=== PATIENT | male | born 1980 | race African-American/Black ===

== ENCOUNTER 2017-04-24 19:13 | Emergency (ER) | payer OTHER ==
--- NOTE | 2017-04-24 20:21 | CT ---
CT OF THE CERVICAL SPINE 04/24/[address] of the cervical spine was done following trauma. Axial slices were acquired, then coronal a nd sagittal reconstructions were done. No fracture or dislocation was seen at any cervical level. There is loss of the normal cervical lordo sis which may be due to muscle spasm. There is a focal central bulge of the C4-C5 disc. Additionally, there is a diffuse disc bulge/osteoph yte complex at C5-C6 with a large right paracentral posterior osteophyte projecting into the spinal c anal and potentially effacing the cord. No foraminal stenosis was seen at any level. The soft tissues are normal in thickness. The C1 to dens distance is normal. There is a mild diffuse increase in deep cervical adenopathy bilaterally, but the findings are symmetrical and this is generally a very nonsp ecific finding. IMPRESSION: 1. Straightening of the cervical spine but no fractures seen. Muscle spasm presumed. 2. Focal central disc protrusion at C4-C5, age indeterminate. 3. Diffuse disc bulge at C5-C6, a little more right sided than left, plus a large posterior oste ophyte projecting into the spinal canal at this level. The latter probably effaces the cord. POS: HOME
[2017-04-24] MEDS ORDERED: Ketorolac Tromethamine 30 MG/ML VIAL ONE (20:24)
[2017-04-24 20:39] LABS: Bilirubin Negative (Negative); Blood, Urine Trace (Negative); Clarity Clear (Clear); Glucose, Urine (Dipstick) Negative (Negative); Leukocyte Negative (Negative); Nitrite Negative (Negative); Protein, Urine (Dipstick) Negative (Neg-Trace); Specific Gravity, Urine 1.015 (1.005-1.030)
[2017-04-24 20:45] LABS: RBC/HPF 0-3 HPF (0-3); Squamous Epithelial 0-3 HPF (0-3); WBC/HPF None Seen HPF (0-3)
--- NOTE | 2017-04-24 21:04 | CT ---
CT OF THE THORACIC SPINE 04/24/[address] of the thoracic spine was done following trauma. Axial slices were acquired, then coronal a nd sagittal reconstructions were done. No fracture, dislocation, or disc space narrowing was seen at any thoracic level. Vertebral alignment was normal. The paravertebral soft tissues appeared normal. There was no sign of central canal or fo raminal stenosis at any level. No disc herniations were seen, though small ones would be missed on th is study. Dependent atelectasis is seen in the lungs. Much of the patient's mediastinum was visible on these im ages and no traumatic changes were seen in the areas covered. IMPRESSION: No acute traumatic finding. POS: HOME
--- NOTE | 2017-04-24 21:13 | CT ---
CT ABDOMEN AND PELVIS WITH CONTRAST 04/24/[address] of the abdomen and pelvis was done following trauma. Axial slices were acquired after a power stephanie of IV contrast. Coronal and sagittal reconstructions were later done. The lung bases are clear except for some dependent atelectasis. There was no sign of pleural effusion or pneumothorax. No rib fractures were seen. The liver, spleen, pancreas, kidneys, adrenal glands and abdominal aorta all appeared normal. There w ere no signs of laceration or hematoma in any organ. There is no obstruction of the urinary tract. Th e spleen is intact. There is no distended bowel, free air, or free fluid seen in the abdomen. There is a large amount of food stuff in the patient's stomach. CT of the pelvis showed no pelvic masses, fluid collections, or inflammatory changes. The lumbar spin e appeared intact. The bony pelvis appeared intact. IMPRESSION: No acute traumatic changes. Results of this scan and all other scans phoned to Dr. Marcos at 2018 on 04/24/17. POS: HOME
[2017-04-25] MEDS ORDERED: Heparin 25,000 units/D5W 0 ML ONE (06:43)
== END 2017-04-24 20:47 | disposition home or self-care (01) ==
LOC: BURERS 19:13
DX: S13.4XXA Sprain of ligaments of cervical spine, initial encounter (principal); S33.5XXA Sprain of ligaments of lumbar spine, initial encounter; S23.3XXA Sprain of ligaments of thoracic spine, initial encounter; V43.52XA Car driver injured in collision with other type car in traffic accident, initial encounter
CPT/HCPCS: 72125; 72128; 74177; 81003; 81015; 96374; G0390; J1885